=== PATIENT | male | born 1950 | race Caucasian/White ===

== ENCOUNTER → 2025-02-12 11:20 | Outpatient (REF) | payer OTHER, SELFPAY | LOC: RAD 11:20 | PROVIDERS: FAMILY PHYSICIAN Family Medicine | DX: I25.10 Atherosclerotic heart disease of native coronary artery without angina pectoris (principal) | CPT/HCPCS: 71046 ==

== ENCOUNTER 2025-05-05 09:44 | Outpatient (RCR) | payer OTHER, SELFPAY | END 2025-05-05 23:59 | disposition home or self-care (01) | LOC: CRHB 09:44 | PROVIDERS: ATTENDING PHYSICIAN Internal Medicine Cardiovascular Disease; FAMILY PHYSICIAN Family Medicine | DX: Z95.1 Presence of aortocoronary bypass graft (principal) | CPT/HCPCS: G0422; G0423 ==

== ENCOUNTER 2025-06-02 09:50 | Outpatient (RCR) | payer OTHER, SELFPAY | END 2025-06-02 23:59 | disposition home or self-care (01) | LOC: CRHB 09:50 | PROVIDERS: ATTENDING PHYSICIAN Internal Medicine Cardiovascular Disease; FAMILY PHYSICIAN Family Medicine | DX: I25.10 Atherosclerotic heart disease of native coronary artery without angina pectoris (principal); Z95.1 Presence of aortocoronary bypass graft; Z95.5 Presence of coronary angioplasty implant and graft | CPT/HCPCS: G0422; G0423 ==